=== PATIENT | female | born 1990 | race African-American/Black ===

== ENCOUNTER 2019-01-18 08:30 | Inpatient (IN) | payer OTHER ==
[2019-01-18] MEDS ORDERED: DEXTROSE 5%-LACTATED RINGERS 1,000 ML IV SCH (10:15)
[2019-01-18] MEDS ORDERED: AMPICILLIN SODIUM 2 GM VIAL ONE (10:20)
--- NOTE | 2019-01-18 10:22 | HP ---
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: Alzheimer's, CVA, Dementia, Migraine, Multiple Sclerosis, Peripheral Neuropathy, Parkinson's, Seizure, Syncope, TIA, Vertigo, Other Cardiovascular: No: AFIB, Aneurysm, Aortic Insufficiency, Aortic Stenosis, CAD, CHF, Deep Vein Thrombosis, HTN, Hyperlipdemia, IN, Mitral Insufficiency, Mitral Stenosis, Murmur, Pulmonary Hypertension, Other Pulmonary: No: Asthma, Bronchitis, Cancer, COPD, O2 Dependent, Pneumonia, Previously Intubated, Pulmonary Embolus, Pulmonary Fibrosis, Sleep Apnea, Other Gastrointestinal: No: Ascites, Cancer, Constipation, Crohn's Disease, Diverticulitis, Diverticulosis, Esophageal Varices, Gastritis, GERD, GI Bleed, Hemorrhoids, Hiatal Hernia, Inflamatory Bowel Disease, Irritable Bowel Disease, Pancreatitis, Peptic Ulcer Disease, Ulcerative Colitis, Other Hepatobiliary: No: Cirrhosis, Cholelithiasis, Cholecystitis, Choledocholithiasis , Hepatitis A, Hepatitis B, Hepatitis C, Other Renal/: No: Renal Failure, Renal Inusuff, BPH, Cancer, Hematuria, Hemodialysis , Neurogenic Bladder, Renal Calculi, UTI, Other Reproductive: No: Ectopic , Endometriosis, Fibroids, PID, Polycystic Ovary Syndrome, Postmenopausal, Other ...Para: 2 () Heme/Onc: No: Anemia, B12 Deficiency, Bleeding Disorder, Cancer, Current Chemotherapy, Current Radiation Therapy, Hemochromatosis, Hypercoaguable State, Myeloproliferative Synd, Sickle Cell Disease, Sickle Cell Trait, Thrombocytopenia, Other Infectious Disease: No: AIDS, C-Diff, Herpes Zoster, HIV, MRSA, STD's, Tuberculosis, VREF, Other Psych: No: Addictions, Anxiety, Bipolar, Depression, Panic, Psychosis, Schizophrenia, Other Musculoskeletal: No: Bursitis, Chronic low back pain, Hemiparesis, Hemiplegia, Osteoarthritis, Paraplegia, Other Rheumatology: No: Fibromyalgia, Gout, Lupus, Rheumatoid Arthritis, Sarcoidosis, Vasculitis, Other ENT: No: Allergic Rhinitis, Sinusitis, Other Endocrine: No: Jonathan's Disease, Colleen's Disease, Diabetes Insipidus, Diabetes Mellitus, Hyperparathyroidism, Hyperthyroidism, Hypothyroidism, Osteopenia, SIADH, Other Dermatology: No: Basal Cell, Cellulitis, Eczema, Melanoma, Psoriasis, Squamous Cell, Other - Past Surgical History Past Surgical History: Yes: None Hx Myomectomy: No Hx Transabdominal Cerclage: No - Smoking History Smoking history: Never smoked Have you smoked in the past 12 months: No - Alcohol/Substance Use Hx Alcohol Use: No History of Substance Use: reports: None - Social History Usual Living Arrangement: Yes: With Spouse, With Child ADL: Independent History of Recent Travel: No Home Medications - Allergies Allergies/Adverse Reactions: Allergies Allergy/AdvReac Type Severity Reaction Status Date / Time No Known Allergies Allergy Verified 10/20/13 08:12 - Home Medications Home Medications: Ambulatory Orders Vitamins (Sjr) - 1 tab PO DAILY 10/20/13 Acetaminophen [Tylenol .Regular Strength -] 650 mg PO Q4H PRN #0 tablet Ibuprofen [Motrin -] 600 mg PO Q6H PRN #0 tablet 10/22/13 Family Disease History - Family Disease History Family Disease History: Diabetes: Father, Mother Review of Systems - Review of Systems Constitutional: reports: Other (Labor contractions) Eyes: reports: No Symptoms HENT: reports: No Symptoms Neck: reports: No Symptoms Cardiovascular: reports: No Symptoms Respiratory: reports: No Symptoms Gastrointestinal: reports: No Symptoms Genitourinary: reports: No Symptoms Breasts: reports: No Symptoms Reported Musculoskeletal: reports: No Symptoms Integumentary: reports: No Symptoms Neurological: reports: No Symptoms Endocrine: reports: No Symptoms Hematology/Lymphatic: reports: No Symptoms Psychiatric: reports: No Symptoms Physical Exam - Maternity Constitutional: Yes: Well Nourished, No Distress, Calm Eyes: Yes: WNL, Conjunctiva Clear HENT: Yes: WNL, Atraumatic, Normocephalic Neck: Yes: WNL, Supple, Trachea Midline Cardiovascular: Yes: WNL, Regular Rate and Rhythm Lungs: Clear to auscultation, Normal air movement - Abdominal Exam/OB Fundal Height: 39 Number of Fetuses: Single Presentation: Vertex Contractions: Yes Regularity: Regular Intensity: Moderate Monitor Mode: External Heart Rate (range): 140 Heart Rate Location: Midline Category: I Accelerations: Uniform Decelerations: None - Vaginal Exam/OB Vaginal Bleediing: No Speculum Exam: No Dilatation (cm): 4 Effacement (%): 80 Amniotic Membrane Status: Leaking Nitrazine Test: Positive Amniotic Fluid: Yes: Clear Meconium: Light Presentation: Vertex/Position Station: -1 (Adequate gynecoid pelvimetry) - Physical Exam Musculoskeletal: Yes: WNL Extremities: Yes: WNL Edema: No Integumentary: Yes: WNL Deep Tendon Reflex Grade: Normal +2 ...Motor Strength: WNL Psychiatric: Yes: WNL, Alert, Oriented Hemorrhage Risk Assessment - Risk Factors Medium Risk Factors: Yes: None High Risk Factors: Yes: None Risk Score: 1 Risk Level: Medium Risk Imaging - Results Ultrasound: Report Reviewed Assessment/Plan 29yo P2 with at EGA 39 3/7wks admitted with spontaneous labor and SROM at 7am. Pt with Category I tracing. She declined all pain mgt options. Plan to monitor labor. IV abx for GBS prophylaxis. Anticipate .
[2019-01-18 10:36] VITALS: BMI 23.6
[2019-01-18 11:58] LABS: BASO % 0.7 % (0-2.0); EOS % 1.2 % (0-4.5); HEMATOCRIT 31.4 % (32.4-45.2); HEMOGLOBIN 10.4 GM/dL (10.7-15.3); LYMPH % 16.5 % (8-40); MEAN CELL VOLUME 75.6 fl (80-96); MEAN PLT VOLUME 9.9 fl (7.5-11.1); MONO % 7.5 % (3.8-10.2); NEUT % 74.1 % (42.8-82.8); PLATELET COUNT 158 K/MM3 (134-434); RBC 4.16 M/mm3 (3.60-5.2); RDW 16.9 % (11.6-15.6); WHITE BLOOD COUNT 8.1 K/mm3 (4.0-10.0)
[2019-01-18] MEDS ORDERED: AMPICILLIN - 2 GM in SODIUM CHLORIDE 100 ML IVPB ONE (12:00)
[2019-01-18 12:13] LABS: INR 0.97 (0.83-1.09); PROTHROMBIN TIME (PATIENT) 11.5 SEC (9.7-13.0)
[2019-01-18 12:18] LABS: ANION GAP 8 MMOL/L (8-16); BLOOD UREA NITROGEN 8 mg/dL (7-18); CALCIUM 8.2 mg/dL (8.5-10.1); CHLORIDE 107 mmol/L (98-107); CO2 22 mmol/L (21-32); CREATININE 0.6 mg/dL (0.55-1.3); GLUCOSE,RANDOM 70 mg/dL (74-106); SODIUM 137 mmol/L (136-145)
[2019-01-18] MEDS ORDERED: OXYTOCIN 20 UNITS in 0.9% NS 20 UNIT/1,000 ML INFUS.BAG IV ONE (12:21)
[2019-01-18] MEDS ORDERED: BENZOCAINE 28 GM HEMORRHOIDAL OINTMENT TP PRN (14:46)
[2019-01-18] MEDS ORDERED: IBUPROFEN 600 MG TABLET (FP) PO PRN (14:46)
[2019-01-18] MEDS ORDERED: BENZOCAINE 20% 57 GM BOTTLE TP PRN (14:46)
[2019-01-18] MEDS ORDERED: BISACODYL 10 MG SUPP.RECT RC PRN (14:46)
[2019-01-18] MEDS ORDERED: METHYLERGONOVINE MALEATE 0.2 MG/1 ML AMP IM PRN (14:46)
[2019-01-18] MEDS ORDERED: ACETAMINOPHEN 325 MG TABLET (FP) PO PRN (14:46)
[2019-01-18] MEDS ORDERED: WITCH HAZEL 50% (TUCKS) 40 PAD/JAR PAD TP PRN (14:46)
--- NOTE | 2019-01-18 14:57 | PN ---
Progress Note (short form) - Note Progress Note: Pt requested to take the placenta home. Her HIV, Hep B, Hep C results are negative. The pt will be allowed to take the placenta.
[2019-01-18] MEDS ORDERED: OXYTOCIN 20 UNITS in 0.9% NS 20 UNIT/1,000 ML INFUS.BAG IV SCH (15:00)
[2019-01-19 06:37] LABS: HBsAG SCREEN Negative (Negative)
--- NOTE | 2019-01-19 07:06 | PN ---
Post Progress Note - Subjective Subjective: Patient without acute complaints. Reports tolerating oral intake without nausea or vomiting. Ambulating without dizziness. Denies fevers or chills. Pain well controlled with oral pain medication. without difficulty. Passing flatus. Post Day: 1 Type of Delivery: Vital Signs: Vital Signs Temperature 98.8 F 01/19/19 06:00 Pulse Rate 88 01/19/19 06:00 Respiratory Rate 18 01/19/19 06:00 Blood Pressure 109/72 01/19/19 06:00 O2 Sat by Pulse Oximetry (%) 99 01/18/19 15:30 Breast Exam: Yes: Soft Uterus: Yes: Fundus Firm, Fundus below umbilicus Abdomen/GI: Yes: Abdomen soft, Passing flatus, Tolerating PO. No: Abdominal Distention, Tender Lochia: Yes: Serosa Extremities: Yes: Calves non-tender Perineum: No: Laceration Activity: Ambulating - Labs Labs: CBC WBC 8.1 K/mm3 (4.0-10.0) 01/18/19 11:15 RBC 4.16 M/mm3 (3.60-5.2) 01/18/19 11:15 Hgb 10.4 GM/dL (10.7-15.3) L 01/18/19 11:15 Hct 31.4 % (32.4-45.2) L 01/18/19 11:15 MCV 75.6 fl (80-96) L 01/18/19 11:15 MCH 25.0 pg (25.7-33.7) L 01/18/19 11:15 MCHC 33.0 g/dl (32.0-36.0) 01/18/19 11:15 RDW 16.9 % (11.6-15.6) H 01/18/19 11:15 Plt Count 158 K/MM3 (134-434) D 01/18/19 11:15 MPV 9.9 fl (7.5-11.1) 01/18/19 11:15 Absolute Neuts (auto) 6.0 K/mm3 (1.5-8.0) 01/18/19 11:15 Neutrophils % 74.1 % (42.8-82.8) 01/18/19 11:15 Lymphocytes % 16.5 % (8-40) D 01/18/19 11:15 Monocytes % 7.5 % (3.8-10.2) 01/18/19 11:15 Eosinophils % 1.2 % (0-4.5) D 01/18/19 11:15 Basophils % 0.7 % (0-2.0) 01/18/19 11:15 Nucleated RBC % 0 % (0-0) 01/18/19 11:15 Assessment/Plan 29 yo PPD # 1 s/p , afebrile, vital signs stable, doing well 1. Continue routine care. 2. Follow up AM CBC 3. Rh positive status, no rhogam indicated. 4. Encourage ambulation 5. Continue oral pain medication 6. Patient states desires circumcision for . Discussed risks including infection, bleeding, damage to tip of penis, and unsatisfactory result, resulting in surgical repair or repeat circumcision. Patient expressed understanding and gives verbal consent to procedure. Infant has not been cleared by family consumer science teacher yet for procedure. 7. Anticipate discharge home day #2
[2019-01-19 07:16] LABS: BASO % 0.3 % (0-2.0); EOS % 0.7 % (0-4.5); HEMATOCRIT 22.6 % (32.4-45.2); HEMOGLOBIN 7.5 GM/dL (10.7-15.3); LYMPH % 12.8 % (8-40); MCHC 33.1 g/dl (32.0-36.0); MEAN CELL VOLUME 75.4 fl (80-96); MEAN PLT VOLUME 9.2 fl (7.5-11.1); MONO % 6.8 % (3.8-10.2); NEUT % 79.4 % (42.8-82.8); PLATELET COUNT 144 K/MM3 (134-434); RDW 17.3 % (11.6-15.6); WHITE BLOOD COUNT 17.8 K/mm3 (4.0-10.0)
[2019-01-19] MEDS: PRENATAL VITAMINS W/ FOLIC ACID TABLET (FP) PO SCH (09:28)
--- NOTE | 2019-01-19 12:52 | PN ---
Delivery - Delivery Vaginal Delivery: No Problems, Spontaneous Type of Anesthesia: None Episiotomy/Laceration: None EBL (cc): 350 Delivery, Single - Stages of Labor Date 1st Stage Initiatied: 01/18/19 Time 1st Stage Initiated: 04:00 Date 2nd Stage Initiated: 01/18/19 Time 2nd Stage Initiated: 13:15 Date of Delivery: 01/18/19 Time of Delivery: 14:26 Date Placenta Delivered: 01/18/19 Time Placenta Delivered: 14:35 Placenta: Yes: Spontaneous, Normal Configuration - Condition of Unit Support Representative/Plant Quality Manager Present: No Gender: Male Weight: 3.345 kg Position: Right, OA Total Hours ROM (Hrs/Mins): 7/35 - 1 Minute Total Score: 9 5 Minutes Total Score: 9 - Feeding Plan Initial Plan: Exclusive throughout hospitalization Benefits of Exclusively reinforced: Yes
[2019-01-19] MEDS ORDERED: SENNOSIDES/DOCUSATE COMBO (SENNA PLUS) TABLET (UD) PO PRN (22:00)
[2019-01-20 09:27] VITALS: BP 124/55; PULSE 99; TEMP 98.1
[2019-01-20] MEDS: PRENATAL VITAMINS W/ FOLIC ACID TABLET (FP) PO SCH (10:07)
[2019-01-20 10:38] LABS: HEMATOCRIT 23.4 % (32.4-45.2); HEMOGLOBIN 7.6 GM/dL (10.7-15.3); MCH 25.2 pg (25.7-33.7); MCHC 32.7 g/dl (32.0-36.0); MEAN PLT VOLUME 9.2 fl (7.5-11.1); PLATELET COUNT 185 K/MM3 (134-434); RBC 3.03 M/mm3 (3.60-5.2); RDW 17.4 % (11.6-15.6)
--- NOTE | 2019-01-20 11:58 | PN ---
Post Progress Note - Subjective Subjective: Pt is well and has no complaints. She is breast feeding and ambulating w/o issues. Post Day: 2 Type of Delivery: Vital Signs: Vital Signs Temperature 98.1 F 01/20/19 09:25 Pulse Rate 99 H 01/20/19 09:25 Respiratory Rate 20 01/20/19 09:25 Blood Pressure 124/55 L 01/20/19 09:25 O2 Sat by Pulse Oximetry (%) 99 01/18/19 15:30 Breast Exam: Yes: Soft Uterus: Yes: Fundus Firm, Fundus below umbilicus Abdomen/GI: Yes: Abdomen soft, Passing flatus, Tolerating PO Lochia: Yes: Rubra Lochia, amount: Small Extremities: Yes: Calves non-tender Perineum: Yes: Intact Activity: Ambulating - Labs Labs: CBC WBC 14.0 K/mm3 (4.0-10.0) H 01/20/19 10:20 RBC 3.03 M/mm3 (3.60-5.2) L 01/20/19 10:20 Hgb 7.6 GM/dL (10.7-15.3) L 01/20/19 10:20 Hct 23.4 % (32.4-45.2) L 01/20/19 10:20 MCV 77.0 fl (80-96) L 01/20/19 10:20 MCH 25.2 pg (25.7-33.7) L 01/20/19 10:20 MCHC 32.7 g/dl (32.0-36.0) 01/20/19 10:20 RDW 17.4 % (11.6-15.6) H 01/20/19 10:20 Plt Count 185 K/MM3 (134-434) D 01/20/19 10:20 MPV 9.2 fl (7.5-11.1) 01/20/19 10:20 Absolute Neuts (auto) 14.1 K/mm3 (1.5-8.0) H 01/19/19 06:45 Neutrophils % 79.4 % (42.8-82.8) 01/19/19 06:45 Lymphocytes % 12.8 % (8-40) D 01/19/19 06:45 Monocytes % 6.8 % (3.8-10.2) 01/19/19 06:45 Eosinophils % 0.7 % (0-4.5) 01/19/19 06:45 Basophils % 0.3 % (0-2.0) 01/19/19 06:45 Nucleated RBC % 0 % (0-0) 01/19/19 06:45 Assessment/Plan 29yo P3 s/p , doing well stable, afebrile. Asymptomatic for anemia. care instructions reviewed. Advised to take Fe and PNV Continue routine care. Ambulation encouraged Discharge instruction reviewed. .
--- NOTE | 2019-01-20 12:01 | DS ---
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 Vital Signs: Vital Signs Temperature 98.1 F 01/20/19 09:25 Pulse Rate 99 H 01/20/19 09:25 Respiratory Rate 20 01/20/19 09:25 Blood Pressure 124/55 L 01/20/19 09:25 O2 Sat by Pulse Oximetry (%) 99 01/18/19 15:30 Constitutional: Yes: Well Nourished, No Distress, Calm Eyes: Yes: WNL, Conjunctiva Clear HENT: Yes: WNL, Atraumatic, Normocephalic Neck: Yes: WNL, Supple, Trachea Midline Cardiovascular: Yes: WNL, Regular Rate and Rhythm Respiratory: Yes: WNL, Regular, CTA Bilaterally Gastrointestinal: Yes: WNL, Normal Bowel Sounds, Soft ...Rectal Exam: Yes: Deferred Renal/: Yes: WNL External Genitalia: Yes: Normal ....Post : Yes: Uterus firm, Uterus non-tender, Slight lochia rubra Breast(s): Yes: WNL Musculoskeletal: Yes: WNL Extremities: Yes: WNL Edema: No Integumentary: Yes: WNL Neurological: Yes: WNL, Alert, Oriented ...Motor Strength: WNL Psychiatric: Yes: WNL, Alert, Oriented Labs: CBC, BMP 01/20/19 10:20 01/18/19 11:15 Delivery - Delivery Vaginal Delivery: No Problems, Spontaneous Type of Anesthesia: None Episiotomy/Laceration: None EBL (cc): 350 Delivery, Single - Stages of Labor Date 1st Stage Initiatied: 01/18/19 Time 1st Stage Initiated: 04:00 Date 2nd Stage Initiated: 01/18/19 Time 2nd Stage Initiated: 13:15 Date of Delivery: 01/18/19 Time of Delivery: 14:26 Date Placenta Delivered: 01/18/19 Time Placenta Delivered: 14:35 Placenta: Yes: Spontaneous, Normal Configuration - Condition of Infant Transliterator/Plaster Foreman Present: No Gender: Male Weight: 3.345 kg Position: Right, OA Total Hours ROM (Hrs/Mins): 7/35 - 1 Minute Total Score: 9 5 Minutes Total Score: 9 - Feeding Plan Initial Plan: Exclusive throughout hospitalization Benefits of Exclusively reinforced: Yes Remarks - Remarks Remarks: Nuchal cord x 1 Discharge Summary Reason For Visit: LABOR Spont labor at term Procedures: Principal: PASCALE Hospital Course: Normal recovery Condition: Good - Instructions Diet, Activity, Other Instructions: Physical activity Resume your normal everyday activity as tolerated no heavy lifting or exercise until seen by your surgeon. You may walk unlimited candi of and climb stairs. You may resume driving the car when you feel safe and comfortable behind the wheel. No sexual activity as instructed. Diet There are no dietary restrictions. Eat healthy, high-fiber foods. Drink 6 to 8 glasses of liquid each day. This will assist in keeping your bowels are regular. Pain management You may take Tylenol or acetaminophen or Ibuprofen (for example, Motrin, Advil etc.) from my pain prescription medication is ordered should be taken as prescribed for moderate to severe pain. Call MD for any of the following: Severe pain not relieved by medication Fever of 101 or higher Excessive bleeding or drainage on dressing Inability to urinate Referrals: Herve Allen MD [Staff Physician] - Disposition: HOME - Home Medications Comprehensive Discharge Medication List: Ambulatory Orders Vitamins (Sjr) - 1 tab PO DAILY 10/20/13
[2019-01-20 13:16] LABS: RUBELLA IgG ANTIBODY 3.58 index (Immune >0.99)
== END 2019-01-20 15:40 | disposition home or self-care (01) | DRG 807 ==
LOC: JDEL 08:30 → UNDOADMIN 09:45 → JLDR 09:45 → JERBED 09:45 → J3W 16:09
PROVIDERS: ADMIT Obstetrics & Gynecology; ATTEND Obstetrics & Gynecology
PROC: 10E0XZZ Delivery of Products of Conception, External Approach (ICD-10-PCS; principal; 2019-01-18)
DX: O69.81X0 Labor and delivery complicated by cord around neck, without compression, not applicable or unspecified (principal); Z37.0 Single live birth; O99.824 Streptococcus B carrier state complicating childbirth; O99.02 Anemia complicating childbirth; D64.9 Anemia, unspecified; Z3A.39 39 weeks gestation of pregnancy
CPT/HCPCS: 36415; 59409; 80048; 85025; 85027; 85610; 85730; 86593; 86762; 86803; 86850; 86900; 86901; 87340; 87389

== ENCOUNTER 2025-02-03 03:20 | Inpatient (IN) | payer OTHER ==
[2025-02-03] MEDS: LACTATED RINGERS SOLUTION 1,000 ML/1,000 ML INFUS.BAG IV ONE (04:10)
[2025-02-03] MEDS: BUTORPHANOL TARTRATE 2 MG/ML VIAL IVPB ONE (04:28)
[2025-02-03 04:44] LABS: BASOPHILS # 0.07 x10^3/uL (0.01-0.08); EOSINOPHIL % 1.1 % (0.7-5.8); EOSINOPHILS # 0.09 x10^3/uL (0.04-0.36); HEMATOCRIT 32.2 % (34.1-44.9); HEMOGLOBIN 10.2 g/dL (11.2-15.7); MCHC 31.7 g/dl (32.2-35.5); MEAN PLT VOLUME 10.8 fl (9.4-12.3); MONOCYTE # 0.72 x10^3/uL (0.24-0.86); MONOCYTE % 8.6 % (4.7-12.5); PLATELET COUNT 177 x10^3/uL (182-369); RDW 15.2 % (12.1-16.8)
[2025-02-03 04:52] LABS: INR 0.99 (0.83-1.09); PROTHROMBIN TIME (PATIENT) 10.8 SEC (9.7-13.0)
[2025-02-03 04:55] LABS: ACTIVATED PTT 25.8 SECONDS (25.2-36.5)
[2025-02-03 05:08] LABS: POTASSIUM 3.9 mmol/L (3.5-5.1)
[2025-02-03 05:09] LABS: CALCIUM 8.7 mg/dL (8.5-10.1)
[2025-02-03 05:10] LABS: BLOOD UREA NITROGEN 5.3 mg/dL (7-18)
[2025-02-03 05:13] LABS: CREATININE 0.4 mg/dL (0.55-1.3)
[2025-02-03] MEDS: PROMETHAZINE HCL 25 MG/1 ML VIAL IVPB ONE (05:28)
[2025-02-03 05:31] VITALS: BMI 24.5
[2025-02-03 06:18] VITALS: RESP 18
[2025-02-03] MEDS ORDERED: LIDOCAINE HCL 1% PRESERVATIVE FREE - 30ML VIAL ONE (06:57)
[2025-02-03] MEDS ORDERED: OXYTOCIN 20 UNITS in 0.9% NS 20 UNIT/1,000 ML INFUS.BAG IV ONE (06:57)
[2025-02-03] MEDS: OXYTOCIN 20 UNITS in 0.9% NS 20 UNIT/1,000 ML INFUS.BAG IV SCH (07:30)
[2025-02-03] MEDS ORDERED: WITCH HAZEL 50% (TUCKS) 40 PAD/JAR PAD TP PRN (07:40)
[2025-02-03] MEDS ORDERED: METHYLERGONOVINE MALEATE 0.2 MG/1 ML AMP IM PRN (07:40)
[2025-02-03] MEDS ORDERED: BISACODYL 10 MG SUPP.RECT RC PRN (07:40)
[2025-02-03] MEDS ORDERED: oxyCODONE HCL 5 MG TABLET PO PRN (07:40)
[2025-02-03] MEDS ORDERED: BENZOCAINE 20% 57 GM BOTTLE TP PRN (07:40)
[2025-02-03] MEDS ORDERED: BENZOCAINE 28 GM HEMORRHOIDAL OINTMENT TP PRN (07:40)
[2025-02-03 08:42] LABS: CORD BASE EXCESS -8.7 mmol/L (0-2); CORD HCO3 19.7 mmHg (20-29); CORD PCO2 52.1 mmHg (30-78); CORD pH 7.196 (7.14-7.44)
[2025-02-03 08:48] LABS: CORD BASE EXCESS -3.5 mmol/L (0-2); CORD HCO3 21.7 mmHg (20-29); CORD PCO2 40.1 mmHg (30-78); CORD pH 7.352 (7.14-7.44)
[2025-02-03] MEDS: IBUPROFEN 600 MG TABLET (FP) PO PRN (20:19)
[2025-02-03] MEDS: ACETAMINOPHEN 325 MG TABLET (FP) PO PRN (23:11)
[2025-02-03] MEDS: LACTATED RINGERS SOLUTION 500 ML IV ONE (23:29)
[2025-02-03] MEDS: LACTATED RINGERS SOLUTION 1,000 ML IV SCH (23:29)
[2025-02-04 06:51] LABS: ABSOLUTE IMMATURE GRANULOCYTES 0.11 x10^3/uL (0.0-0.031); BASOPHILS # 0.04 x10^3/uL (0.01-0.08); EOSINOPHIL % 0.9 % (0.7-5.8); HEMATOCRIT 30.3 % (34.1-44.9); HEMOGLOBIN 9.5 g/dL (11.2-15.7); MCHC 31.4 g/dl (32.2-35.5); MEAN CELL VOLUME 78.7 fl (79.4-94.8); MEAN PLT VOLUME 11.1 fl (9.4-12.3); MONOCYTE # 0.75 x10^3/uL (0.24-0.86); MONOCYTE % 6.8 % (4.7-12.5); PLATELET COUNT 167 x10^3/uL (182-369); RDW 15.2 % (12.1-16.8)
[2025-02-04] MEDS ORDERED: SENNOSIDES/DOCUSATE COMBO (SENNA PLUS) TABLET (UD) PO PRN (22:00)
[2025-02-05 09:02] VITALS: BP 104/60; PULSE 94; TEMP 98
== END 2025-02-05 12:15 | disposition home or self-care (01) | DRG 807 ==
LOC: JLDR 03:20 → J3W 09:50
PROVIDERS: ADMIT Obstetrics & Gynecology; ATTEND Obstetrics & Gynecology
PROC: 10E0XZZ Delivery of Products of Conception, External Approach (ICD-10-PCS; principal; 2025-02-03)
DX: O99.02 Anemia complicating childbirth (principal); Z37.0 Single live birth; D64.9 Anemia, unspecified; Z3A.37 37 weeks gestation of pregnancy
CPT/HCPCS: 36415; 36600; 59409; 80048; 82803; 85025; 85461; 85610; 85730; 86780; 86850; 86900; 86901; 96372; J2790